=== PATIENT | male | born 1980 | race American Indian/Alaskan Native ===

== ENCOUNTER 2020-02-14 11:23 | Emergency (ER) | payer SELFPAY ==
[2020-02-14] MEDS ORDERED: ASPIRIN 325 MG TAB PO ONE (12:03)
--- NOTE | 2020-02-14 12:47 | XRay Report ---
CHEST 1 VIEW 02/14/2020 11:38 AM INDICATION / CLINICAL INFORMATION: Chest Pain. COMPARISON: None available. FINDINGS: SUPPORT DEVICES: None. HEART / MEDIASTINUM: No significant abnormality. LUNGS / PLEURA: No significant pulmonary or pleural abnormality. No pneumothorax. ADDITIONAL FINDINGS: No significant additional findings. IMPRESSION: 1. No acute abnormality of the chest. Signer Name: Demarco Barnard MD Signed: 02/14/2020 12:42 PM Workstation Name: [id number]
[2020-02-14 13:23] LABS: Basophils % (Auto) 0.6 % (0.0-1.8); Eosinophils % (Auto) 0.2 % (0.0-4.3); Lymphocytes # (Auto) 1.5 K/mm3 (1.2-5.4); Lymphocytes % (Auto) 19.3 % (13.4-35.0); Mean Corpuscular HGB Conc 35 % (32-34); Mean Corpuscular Volume 94 fl (84-94); Monocytes # (Auto) 0.6 K/mm3 (0.0-0.8); Monocytes % (Auto) 7.9 % (0.0-7.3); Platelet Count 210 K/mm3 (140-440); Red Blood Count 5.38 M/mm3 (3.65-5.03); Red Cell Distribution Width 13.7 % (13.2-15.2)
[2020-02-14 13:24] LABS: Hematocrit 50.4 % (35.5-45.6); Hemoglobin 17.9 gm/dl (11.8-15.2)
[2020-02-14 13:42] LABS: BUN/Creatinine Ratio 13; Blood Urea Nitrogen 12 mg/dL (9-20); Calcium 9.4 mg/dL (8.4-10.2); Hemolysis Index 16
--- NOTE | 2020-02-14 16:10 | Event Note ---
ED Screening Note Date of service: 02/14/20 Time: 16:08 ED Screening Note: Pt complains of epigastric and chest pain x 2 days states SOB denies prior medical hx This initial assessment/diagnostic orders/clinical plan/treatment(s) is/are subject to change based on patients health status, clinical progression and re- assessment by fellow clinical providers in the ED. Further treatment and workup at subsequent clinical providers discretion. Patient/guardian urged not to elope from the ED as their condition may be serious if not clinically assessed and managed. Initial orders include: lab CXR ekg
--- NOTE | 2020-02-14 20:59 | Emergency Department Report ---
HPI - General Chief Complaint: Chest Pain Time Seen by Provider: 02/14/20 16:06 - HPI HPI: Room 17 The patient is a 39-year-old male present with a chief complaint of chest pain. The patient states since yesterday he has had intermittent substernal chest pain in addition to a headache and fatigue. Patient states he has shortness of breath and diaphoresis associated with his chest pain but denies nausea/vomiting. Patient denies cough or fever. Patient admits to slight pleurisy. Patient states he currently only has chest pain when he pushes on his chest and none when he is not. ED Past Medical Hx - Past Medical History Previous Medical History?: No - Surgical History Past Surgical History?: No - Family History Family history: no significant - Social History Smoking Status: Never Smoker Substance Use Type: None (Denies illicit drug use), Alcohol (Occasional) - Medications Home Medications: Home Medications Medication Instructions Recorded Confirmed Last Taken Type Albuterol Mdi (or & Nicu Only) 2 puff IH QID PRN #8.5 gram 02/14/20 Unknown Rx [ProAir HFA Inhaler] Ibuprofen [Motrin 800 MG tab] 800 mg PO Q8HR PRN #20 tablet 02/14/20 Unknown Rx traMADoL [Ultram] 50 mg PO Q6HR PRN #10 tablet 02/14/20 Unknown Rx ED Review of Systems ROS: Stated complaint: CHEST PAINS Other details as noted in HPI Constitutional: diaphoresis, malaise Eyes: denies: eye pain ENT: denies: throat pain Respiratory: shortness of breath, other (pleurisy) Cardiovascular: chest pain Endocrine: no symptoms reported Gastrointestinal: denies: nausea, vomiting Neurological: headache Physical Exam - Physical Exam Vital Signs: Vital Signs 02/14/20 02/14/20 11:45 16:11 Temperature 97.9 F Pulse Rate 90 67 Respiratory 18 16 Rate Blood Pressure 149/80 169/87 [Right] O2 Sat by Pulse 96 98 Oximetry Physical Exam: GENERAL: The patient is well-developed well-nourished male lying on stretcher not appearing to be in acute distress. [] HEENT: Normocephalic. Atraumatic. Extraocular motions are intact. Patient has moist mucous membranes. NECK: Supple. Trachea midline CHEST/LUNGS: Clear to auscultation. There is no respiratory distress noted. HEART/CARDIOVASCULAR: Regular. There is no tachycardia. There is no gallop rub or murmur. ABDOMEN: Abdomen is soft, nontender. Patient has normal bowel sounds. There is no abdominal distention. SKIN: There is no rash. There is no edema. There is no diaphoresis. NEURO: The patient is awake, alert, and oriented. The patient is cooperative. The patient has normal speech MUSCULOSKELETAL: There is no evidence of acute injury. ED Course Vital Signs 02/14/20 02/14/20 11:45 16:11 Temperature 97.9 F Pulse Rate 90 67 Respiratory 18 16 Rate Blood Pressure 149/80 169/87 [Right] O2 Sat by Pulse 96 98 Oximetry ED Medical Decision Making - Lab Data Result diagrams: 02/14/20 12:50 02/14/20 12:50 Laboratory Tests 02/14/20 02/14/20 02/14/20 12:50 12:50 16:58 WBC 7.6 RBC 5.38 H Hgb 17.9 H Hct 50.4 H MCV 94 MCH 33 H MCHC 35 H RDW 13.7 Plt Count 210 Lymph % (Auto) 19.3 [place] % (Auto) 7.9 H Eos % (Auto) 0.2 Baso % (Auto) 0.6 Lymph # 1.5 [place] # 0.6 Eos # 0.0 Baso # 0.0 Seg Neutrophils % 72.0 H Seg Neutrophils # 5.4 D-Dimer Sodium 139 Potassium 4.6 Chloride 101.2 Carbon Dioxide 27 Anion Gap 15 BUN 12 Creatinine 0.9 Estimated GFR > 60 BUN/Creatinine Ratio 13 Glucose 110 H Calcium 9.4 Troponin T < 0.010 < 0.010 Lipase 02/14/20 02/14/20 02/14/20 20:55 20:58 20:58 WBC RBC Hgb Hct MCV MCH MCHC RDW Plt Count Lymph % (Auto) [place] % (Auto) Eos % (Auto) Baso % (Auto) Lymph # [place] # Eos # Baso # Seg Neutrophils % Seg Neutrophils # D-Dimer < 135.00 Sodium Potassium Chloride Carbon Dioxide Anion Gap BUN Creatinine Estimated GFR BUN/Creatinine Ratio Glucose Calcium Troponin T < 0.010 Lipase 53 - EKG Data -: EKG Interpreted by [place] EKG shows normal: sinus rhythm Rate: normal - EKG Data When compared to previous EKG there are: previous EKG unavailable Interpretation: normal EKG - Radiology Data Radiology results: report reviewed (Chest x-ray), image reviewed (Chest x-ray) interpreted by me: Chest x-ray-no focal infiltrates, no pneumothorax, no foreign body [facility] [address] [place] [address] XRay Report Signed Patient: EUGENIA CLAY MR#: [id number] : 1980 Acct:[id number] Age/Sex: 39 / M ADM Date: 02/14/20 Loc: ED Attending Dr: Ordering Physician: STEPHANIE CEJA MD Date of Service: 02/14/20 Procedure(s): XR chest 1V ap Accession Number(s): [id number] cc: ED MD MARCIAL Fluoro Time In Minutes: CHEST 1 VIEW 02/14/2020 11:38 AM INDICATION / CLINICAL INFORMATION: Chest Pain. COMPARISON: None available. FINDINGS: SUPPORT DEVICES: None. HEART / MEDIASTINUM: No significant abnormality. LUNGS / PLEURA: No significant pulmonary or pleural abnormality. No pneumothorax. ADDITIONAL FINDINGS: No significant additional findings. IMPRESSION: 1. No acute abnormality of the chest. Signer Name: Demarco Barnard MD Signed: 02/14/2020 12:42 PM Workstation Name: [id number] Transcribed By: [place] Dictated By: Demarco Barnard MD Electronically Authenticated By: Demarco Barnard MD Signed Date/Time: 02/14/20 124 DD/ 1242 TD/TT: - Differential Diagnosis ACS, pleurisy, PE, pericarditis, pancreatitis, GERD, anxiety Critical care attestation.: If time is entered above; I have spent that time in minutes in the direct care of this critically ill patient, excluding procedure time. ED Disposition Clinical Impression: Atypical chest pain, Pleurisy Disposition: DC-01 TO HOME OR SELFCARE Is pt being admited?: No Does the pt Need Aspirin: No Condition: Stable Instructions: Chest Pain (ED) Additional Instructions: Return to the emergency department should you develop worsening symptoms, inability to tolerate food or liquids, high fever or any other concerns Prescriptions: Ibuprofen [Motrin 800 MG tab] 800 mg PO Q8HR PRN #20 tablet PRN Reason: Pain, Moderate (4-6) Albuterol Mdi (or & Nicu Only) [ProAir HFA Inhaler] 2 puff IH QID PRN #8.5 gram PRN Reason: Shortness Of Breath traMADoL [Ultram] 50 mg PO Q6HR PRN #10 tablet PRN Reason: Pain Referrals: PRIMARY CARE, [Primary Care Provider] - 3-5 Days [facility] [Provider Group] - 3-5 Days Time of Disposition: 22:30
[2020-02-14] MEDS ORDERED: ASPIRIN 325 MG TAB ONE (21:12)
[2020-02-14 22:11] VITALS: BP 126/87
== END 2020-02-14 22:41 | disposition home or self-care (01) ==
LOC: ED 11:23
DX: R07.89 Other chest pain (principal); R09.1 Pleurisy; Z79.899 Other long term (current) drug therapy
CPT/HCPCS: 36415; 71045; 80048; 83690; 84484; 85025; 85379; 93005